=== PATIENT | female | born 1955 | race Caucasian/White ===

== ENCOUNTER 2016-08-08 14:44 | Observation (INO) | payer OTHER ==
[~2016-08-08] VITALS: Ht 154.9 cm; Wt 108.6 kg
[2016-08-08 15:32] LABS: MCH 30.4 PG (29.0-34.0); MCHC 32.4 G/DL (30.0-36.0); MCV 93.9 FL (83-99); MEAN PLAT.VOLUME 10.1 uM^3 (9.5-12.4); PLATELET COUNT 193 K/uL (156-360); RBC DIS.WIDTH-CV 13.7 % (11.8-14.6); RED BLOOD COUNT 3.62 M/uL (3.80-5.20); WHITE BLOOD COUNT 5.6 K/uL (4.1-10.2)
[2016-08-08 15:41] LABS: CHLORIDE 107 mEq/L (99-109); POTASSIUM 4.2 mEq/L (3.7-5.4); SODIUM 139 mEq/L (136-147)
[2016-08-08 15:43] LABS: GLUCOSE 81 mg/dL (70-99)
[2016-08-08 15:44] LABS: ANION GAP 8 MEQ/L (2-14)
[2016-08-08 15:46] LABS: GFR ESTIMATE (CALCULATED) > 59 mL/min/; SERUM ETHYL ALCOHOL < 10 mg/dL
[2016-08-08 15:47] LABS: UREA NITROGEN (BUN) 12 mg/dL (9-23)
[2016-08-08] MEDS ORDERED: ALPRAZOLAM0.5 MG PO (15:47)
[2016-08-08] MEDS ORDERED: SUCRALFATE1 GM PO (15:47)
[2016-08-08] MEDS ORDERED: ARIPIPRAZOLE10 MG PO (15:47)
[2016-08-08] MEDS ORDERED: DESYREL100 MG PO ×2 (15:47→15:48)
[2016-08-08] MEDS ORDERED: CYCLOBENZAPRINE10 MG PO (15:48)
[2016-08-08] MEDS ORDERED: MELOXICAM7.5 MG PO (15:48)
[2016-08-08] MEDS ORDERED: OMEPRAZOLE40 M1 PO (15:48)
[2016-08-08] MEDS ORDERED: SEROQUEL300 MG PO (15:48)
[2016-08-08] MEDS ORDERED: ASPIRIN325 MG PO (15:49)
[2016-08-08 16:28] LABS: ADD MEDTOX COMMENT Y; AMPHETAMINE NEGATIVE (500 ng/mL); BARBITURATES NEGATIVE (200 ng/mL); BENZODIAZEPINES PRESUMPTIVE POSITIVE (150 ng/mL); COCAINE NEGATIVE (150 ng/mL); INTERNAL CONTROLS VALID? YES; METHADONE NEGATIVE (200 ng/mL); METHAMPHETAMINE NEGATIVE (500 ng/mL); OPIATES (MORPHINE) NEGATIVE (100 ng/mL); OXYCODONE NEGATIVE (100 ng/mL); PHENCYCLIDINE NEGATIVE (25 ng/mL); PROPOXYPHENE NEGATIVE (300 ng/mL); THC CANNABINOIDS NEGATIVE (50 ng/mL); TRICYCLIC ANTIDEPRESSANTS PRESUMPTIVE POSITIVE (300 ng/mL)
[2016-08-08 16:41] LABS: TOTAL BILIRUBIN 0.2 mg/dL (0.0-1.0)
[2016-08-08 16:42] LABS: ALKALINE PHOSPHATASE 74 IU/L (3-129)
[2016-08-08 16:44] LABS: DIRECT BILIRUBIN 0.1 mg/dL (0.0-0.3)
[2016-08-08 16:48] LABS: BENZODIAZEPINES, URINE SCREEN POSITIVE (200 ng/mL)
[2016-08-08 17:14] LABS: SALICYLATE < 5.0 MG/DL (15-30)
[2016-08-08 21:41] LABS: ADD MIUA? NO; BILIRUBIN NEGATIVE; BLOOD NEGATIVE; COLOR STRAW ((YELLOW)); GLUCOSE (STRIP) NEGATIVE; KETONES NEGATIVE; LEUKOCYTES NEGATIVE; NITRITE NEGATIVE; PROTEIN (STRIP) NEGATIVE; SPECIFIC GRAVITY 1.006 (1.000-1.030); UCUL ADDED? NO; UROBILINOGEN 0.2 MG/DL (0.2-1.0)
[2016-08-09 03:28] VITALS: BP 122/82
[2016-08-09 09:00] VITALS: BP 125/70
[2016-08-09 09:45] LABS: HEMATOCRIT 37.9 % (36.0-46.0); IMM.RETIC FRACTION 14.7 % (3-19); MCH 31.2 PG (29.0-34.0); MCHC 32.2 G/DL (30.0-36.0); MCV 96.9 FL (83-99); PLATELET COUNT 192 K/uL (156-360); RBC DIS.WIDTH-SD 49.8 % (39-53); RED BLOOD COUNT 3.91 M/uL (3.80-5.20); RETIC HGB EQUIVALENT 33.2 (28-36); RETICULOCYTE COUNT 1.9 % (0.5-1.8); WHITE BLOOD COUNT 3.4 K/uL (4.1-10.2)
[2016-08-09 10:07] LABS: ALKALINE PHOSPHATASE 73 IU/L (3-129); ANION GAP 8 MEQ/L (2-14); CHLORIDE 110 MEQ/L (99-109); DIRECT BILIRUBIN 0.1 mg/dL (0.0-0.3); GFR ESTIMATE (CALCULATED) > 59 mL/min/; GLUCOSE 86 mg/dL (70-99); POTASSIUM 4.1 MEQ/L (3.7-5.4); SAMPLE HEMOLYSIS CHECK 0; SAMPLE ICTERIC CHECK 0; SAMPLE LIPEMIA CHECK 0; SODIUM 144 MEQ/L (136-147); TOTAL BILIRUBIN 0.3 MG/DL (0.0-1.0); UREA NITROGEN (BUN) 11 mg/dL (9-23)
[2016-08-09 10:24] LABS: FERRITIN 50 NG/ML (10-291)
[2016-08-09] MEDS ORDERED: ARIPIPRAZOLE20 MG PO (10:34)
[2016-08-09] MEDS ORDERED: CALCIUM 600 +1 EA16 PO (10:39)
[2016-08-09] MEDS ORDERED: SYMBICORT60 INHALA1 IH (10:39)
[2016-08-09] MEDS ORDERED: VENTOLIN HFA18 GM IH (10:40)
[2016-08-09] MEDS ORDERED: CYANOCOBAL1000 MCG/2 IM (10:40)
[2016-08-09] MEDS ORDERED: PREMARIN VAGI42.5 GM VG (10:41)
[2016-08-09 12:00] VITALS: BP 118/65
[2016-08-09 18:16] VITALS: BP 1441/87
== END 2016-08-09 18:12 | disposition home or self-care (01) ==
LOC: EME → EDBD 14:44 → 4EAST 16:23 → EDOF 16:23 → 4EAST 08-09 01:54
PROVIDERS: Emergency Medicine; Hospitalist; Internal Medicine
DX: T42.4X1A Poisoning by benzodiazepines, accidental (unintentional), initial encounter (principal); G92 Toxic encephalopathy; D64.9 Anemia, unspecified; F17.200 Nicotine dependence, unspecified, uncomplicated; K21.9 Gastro-esophageal reflux disease without esophagitis; G47.00 Insomnia, unspecified; G89.29 Other chronic pain
CPT/HCPCS: 70450; 71010; 80048; 80076; 81003; 82607; 82728; 82746; 84466; 84999; 85027; 85045; 93005; 99281; 99285; C9113; G0378; G0480; J1650; J7030